=== PATIENT | female | born 1950 | race Caucasian/White ===

== ENCOUNTER → 2016-09-17 | Day surgery (SDC) | payer OTHER ==
[~2016-09-17] MED LIST: ALDACTONE25 MG PO; AMBIEN10 MG PO; AMITRIPTYLINE HC5 GM PO; ANTACID325 MG PO; ASPIRIN81 M1 PO; ASPIRIN81 M2 PO; AZOR 10/20 MG T1 TAB PO; BUSPAR30 MG PO; BUTRANS1 EAC1 TD; CENTRUM SILVER PO; CYANOCOBAL1000 MCG/M INJ; CYMBALTA PO; CYMBALTA30 MG PO; DESYREL100 MG PO; DETROL LA PO; DEXEDRINE SPANS15 MG PO; DULOXETINE HCL60 M1 PO; ESCITALOPRAM OX10 MG PO; FENTANYL1 EACH TOP; FERRO-TIME325 MG PO; FLEXERIL PO; FLONASE 0.05% N16 G1; FUROSEMIDE40 MG PO; GAS-X125 MG PO; HYDROCODON-ACE1 EAC5 PO; IMDUR-ER30 M1 PO; IRON SUPPLEMENT1 TAB PO; LEVAQUIN750 M1 PO; LINZESS145 MCG PO; LISINOPRIL10 MG PO; LYRICA PO; MELATONIN5 M1 PO; MELOXICAM15 MG PO; METOPROLOL TAR25 MG PO; MONTELUKAST SOD10 MG PO; MORPHINE SULFAT15 MG PO; MULTIVITAMIN1 UDCAP PO; NEURONTIN600 MG PO; NIFEDICAL PO; NORCO 10-325 TA1 TAB PO; NUVIGIL150 MG PO; PAMELOR10 M1 PO; PANTOPRAZOLE SO40 MG PO; PLAQUENIL200 MG PO; PREVACID PO; PYRIDOSTIGMINE60 M2 PO; REMERON30 MG PO; RESTASIS32 EA OU; SAVELLA50 MG PO; TOPAMAX25 MG PO; TRAMADOL HCL50 M1 PO; TRAZODONE PO; VITAMIN B-1000 MCG/1 INJ; VITAMIN D250000 UNIT PO; VITAMIN D31000 UNI1 PO; VIVELLE-DO1 PATCH.B1 TD
--- NOTE | ~2016-09-17 | OR ---
Unit #: [id number] #: [id number] Patient: FESTUS RADER [id number] [address] [place], [place] [address] [id number] O MR#: [id number] NAME: FESTUS RADER ROOM: Date of Procedure: 09/17/2016 Admission Date: 09/17/2016 Surgeon: Federico Ennis M.D. : 1950 Attending Physician: Federico Ennis M.D. Primary Care Physician: Sanjay Sears M.D. OPERATIVE REPORT PREOPERATIVE DIAGNOSES Degenerative lumbar disk disease, back pain, radiculopathy. POSTOPERATIVE DIAGNOSES Degenerative lumbar disk disease, back pain, radiculopathy. PROCEDURE PERFORMED Lumbar epidural steroid injection with intravenous sedation and fluoroscopic guidance for needle localization. INDICATIONS FOR PROCEDURE The patient is a 66-year-old female with return of back and bilateral lower extremity shooting pain due to multilevel nonsurgical degenerative lumbar disk disease. The patient also has fibromyalgia, which gives her separate type of symptoms. The patient was treated medically and p.r.n. epidural steroid injections, has done better with a series of 2 injections about a month. Recently, will do single injection at times. Last injection was done 3 months ago, which did very well for about 10 to 11 weeks, but the last week or so, the pain has become significant again, so we are going to proceed with a repeat injection. DESCRIPTION OF PROCEDURE The patient was placed in a seated position. Standard monitors were applied. 2 mg of Versed were given for sedation and anxiolysis, which were adequate. Vital signs remained stable. Sterile prep and drape then of lumbar area was performed. The skin then at the L4 level was localized with 1% lidocaine. An 18-gauge NovaShunttead needle was then advanced via loss of resistance technique and fluoroscopic guidance in toward the epidural space. After confirming proper positioning with fluoroscopy and radiographic contrast, 80 mg of Depo-Medrol and 4 mL of 0.125% bupivacaine were deposited. The patient tolerated the procedure otherwise well and was discharged to the recovery room in stable condition. Dictated by... Aylin LugoP/rosana TD: 09/18/2016 01:31 JOB #: [id number] Unit #: [id number] #: [id number] Patient: FESTUS RADER OPERATIVE REPORT Page 1 of 1 X Federico Ennis MD X PROCEDURE OPERATIVE NOTE
== END | disposition home or self-care (01) ==
LOC: CCSC 07:36
DX: M51.16 Intervertebral disc disorders with radiculopathy, lumbar region (principal); M79.7 Fibromyalgia
CPT/HCPCS: J1040; J2250

== ENCOUNTER → 2016-12-22 | Day surgery (SDC) | payer OTHER ==
--- NOTE | ~2016-12-22 | OR ---
Unit #: [id number] #: [id number] Patient: FESTUS RADER [id number] [address] [place], [place] [address] [id number] O MR#: [id number] NAME: FESTUS RADER ROOM: Date of Procedure: 12/22/2016 Admission Date: 12/22/2016 Surgeon: Federico Ennis M.D. : 1950 Attending Physician: Federico Ennis M.D. Primary Care Physician: Sanjay Sears M.D. OPERATIVE REPORT PREOPERATIVE DIAGNOSES Degenerative lumbar disk disease, back pain and radiculopathy. POSTOPERATIVE DIAGNOSES Degenerative lumbar disk disease, back pain and radiculopathy. PROCEDURE PERFORMED Lumbar epidural steroid injection with intravenous sedation under fluoroscopic guidance and needle localization. HISTORY The patient is a 66-year-old female with back and radicular pain secondary to nonsurgical degenerative disk disease. She was treated conservatively with p.r.n. epidural steroid injections. She poorly tolerates analgesic medications. Epidural steroids have been very helpful. Last injection was done a bit over 3 months ago. She did extremely well with 80% improvement for three months. She has had slow return of her symptom complex. After approximately 10 weeks, the pain has 50% returned. It has continued to get worse, so plan is to repeat a single injection again. The patient has done best in the past with longer lasting improvement with two injections, but due to insurance regulations, we will only able to do single injection at a time on this patient. DESCRIPTION OF PROCEDURE The patient was placed in a seated position. Standard monitors were applied. Then, 2 mg of Versed were given for sedation and anxiolysis, which were adequate. Vital signs remained stable. Sterile prep and drape then of the lumbar area was performed. The skin then at the L3-L4 level was localized with 1% lidocaine. An 18-gauge Carte Blanchetead needle was then advanced via loss of resistance technique and fluoroscopic guidance in toward the epidural space. After confirming proper positioning with fluoroscopy and radiographic contrast, 80 mg of Depo-Medrol and 4 mL of 0.125% bupivacaine were deposited. The patient tolerated the procedure otherwise well and was discharged to the recovery room in stable condition. Dictated by... Federico Ennis M.D. P/rosana Unit #: [id number] #: [id number] Patient: FESTUS RADER TD: 12/22/2016 10:51 JOB #: [id number] CC: [facility] OPERATIVE REPORT Page 1 of 1 X Federico Ennis MD X PROCEDURE OPERATIVE NOTE
== END | disposition home or self-care (01) ==
LOC: CCSC 07:13
DX: M51.16 Intervertebral disc disorders with radiculopathy, lumbar region (principal)
CPT/HCPCS: J1040; J2250